=== PATIENT | male | born 1990 | race Caucasian/White ===

== ENCOUNTER 2016-08-31 15:24 | Emergency (ER) | payer BC, OTHER ==
[2016-08-31] MEDS ORDERED: Ketorolac 30 MG/ML SDV IVPUSH ONE (16:02)
[2016-08-31] MEDS ORDERED: Sodium Chloride 0.9% 1,000 ML IV ONE (16:02)
[2016-08-31 16:34] LABS: CHLORIDE,CL 105 mmol/L (98-110); SODIUM,NA 142 mmol/L (136-146)
--- NOTE | 2016-08-31 16:58 | EDM.PDOC ---
[id number] Complaint: BOWEL ISSUES Time Seen by Provider: 08/31/16 15:57 Source of Information: Reports: Patient History Limitations: Reports: No Limitations - History of Present Illness INITIAL COMMENTS - FREE TEXT/NARRATIVE: History of present illness: 26-year-old male comes in complaining of abdominal pain. Patient case has a history of obstructive bowel pattern and obstipation and he's concerned that he is having another bowel obstruction at this time and would like to be evaluated. Review of systems: As per history of present illness and below otherwise all systems reviewed and negative. Past medical history: As per history of present illness and as reviewed below otherwise noncontributory. Surgical history: As per history of present illness and as reviewed below otherwise noncontributory. Social history: No reported history of drug or alcohol abuse. Family history: As per history of present illness and as reviewed below otherwise noncontributory. Physical exam: HEENT: Atraumatic, normocephalic, pupils reactive, negative for conjunctival pallor or scleral icterus, mucous membranes moist, throat clear, neck supple, nontender, trachea midline. Lungs: Clear to auscultation, breath sounds equal bilaterally, chest nontender. Heart: S1S2, regular, negative for clicks, rubs, or JVD. Abdomen: Soft, diffuse tender in right upper quadrant as well as radiating to right lower quadrant. Hypoactive bowel sounds throughout, Negative for masses or hepatosplenomegaly. Negative for costovertebral tenderness. Pelvis: Stable nontender. Genitourinary: Deferred. Rectal: Deferred. Extremities: Atraumatic, negative for cords or calf pain. Neurovascular unremarkable. Neuro: Awake, alert, oriented. Cranial nerves II through XII unremarkable. Cerebellum unremarkable. Motor and sensory unremarkable throughout. Exam nonfocal. Diagnostics: [CBC, CMP, flatplate of the abdomen] Therapeutics: [IV fluids] Impression: [Constipation] Plan: [Laxatives increase hydration] Definitive disposition and diagnosis as appropriate pending reevaluation and review of above. Right Lower Pain Score (Numeric/FACES): 8 - Related Data Allergies Allergy/AdvReac Type Severity Reaction Status Date / Time No Known Allergies Allergy Verified 09/01/16 21:29 Home Meds: Home Meds Loratadine [Claritin] 10 mg DAILY 08/31/16 [History] Metoclopramide [Reglan] 10 mg PO Q8H #30 tablet 08/31/16 [Rx] Polyethylene Glycol 3350 [MiraLAX] 17 gm PO DAILY #238 cont 08/31/16 [Rx] Past Medical History HEENT History: Reports: None Cardiovascular History: Reports: None Respiratory History: Reports: None Gastrointestinal History: Reports: Bowel Obstruction, Other (See Below) Other Gastrointestinal History: bowel instruction x 4 in the past Genitourinary History: Reports: None Musculoskeletal History: Reports: None Neurological History: Reports: None Psychiatric History: Reports: None Endocrine/Metabolic History: Reports: None Dermatologic History: Reports: None - Infectious Disease History Infectious Disease History: Reports: None - Past Surgical History HEENT Surgical History: Reports: Other (See Below) Other HEENT Surgeries/Procedures: wisdom teeth GI Surgical History: Reports: Appendectomy, Other (See Below) Other GI Surgeries/Procedures: abscessed appendix Social & Family History - Recreational Drug Use Recreational Drug Use: No ED ROS GENERAL - Review of Systems Review Of Systems: See Below (See history of present illness) ED EXAM, GI/ABD - Physical Exam Exam: See Below (See history of present illness) Course - Vital Signs Last Recorded V/S: Last Vital Signs Temp 36.5 C 08/31/16 15:41 Pulse 88 08/31/16 18:03 Resp 16 08/31/16 18:03 BP 128/81 08/31/16 18:03 Pulse Ox 98 08/31/16 18:03 - Orders/Labs/Meds Labs: Laboratory Tests 08/31/16 08/31/16 Range/Units 15:40 15:40 WBC 5.86 (4.0-11.0) K/uL RBC 4.71 (4.50-5.90) M/uL Hgb 14.8 (13.0-17.0) g/dL Hct 42.5 (38.0-50.0) % MCV 90.2 (80.0-98.0) fL MCH 31.4 (27.0-32.0) pg MCHC 34.8 (31.0-37.0) g/dL RDW Std Deviation 39.3 (28.0-62.0) fl RDW Coeff of Imer 12 (11.0-15.0) % Plt Count 198 (150-400) K/uL MPV 11.90 (7.40-12.00) fL Neut % (Auto) 54.4 (48.0-80.0) % Lymph % (Auto) 34.3 (16.0-40.0) % Frederick % (Auto) 8.7 (0.0-15.0) % Eos % (Auto) 1.9 (0.0-7.0) % Baso % (Auto) 0.7 (0.0-1.5) % Neut # (Auto) 3.2 (1.4-5.7) K/uL Lymph # (Auto) 2.0 (0.6-2.4) K/uL Frederick # (Auto) 0.5 (0.0-0.8) K/uL Eos # (Auto) 0.1 (0.0-0.7) K/uL Baso # (Auto) 0.0 (0.0-0.1) K/uL Nucleated RBC % 0.0 /100WBC Nucleated RBCs # 0 K/uL Sodium 142 (136-146) mmol/L Potassium 3.9 (3.5-5.1) mmol/L Chloride 105 (98-110) mmol/L Carbon Dioxide 29 (21-31) mmol/L BUN 15 (6.0-23.0) mg/dL Creatinine 1.3 (0.6-1.5) mg/dL Est Cr Clr Drug Dosing 75.24 mL/min Estimated GFR (MDRD) > 60.0 ml/min Glucose 97 (60-110) mg/dL Calcium 9.8 (8.8-10.8) mg/dL Total Bilirubin 0.6 (0.1-1.5) mg/dL AST 18 (5-40) IU/L ALT 30 (8-54) IU/L Alkaline Phosphatase 79 (40-150) Total Protein 8.0 (6.0-8.0) g/dL Albumin 4.8 (3.5-5.0) g/dL Globulin 3.2 (2.0-3.5) g/dL Albumin/Globulin Ratio 1.5 (1.3-2.8) Meds: Medications Discontinued Medications Generic Name Dose Route Start Last Admin Trade Name Freq PRN Reason Stop Dose Admin Sodium Chloride 1,000 mls @ 999 mls/hr 08/31/16 16:02 08/31/16 16:30 Normal Saline IV 08/31/16 17:02 999 mls/hr STAT ONE Administration Ketorolac Tromethamine 30 mg 08/31/16 16:02 08/31/16 16:30 Toradol IVPUSH 08/31/16 16:03 30 mg ONETIME ONE Administration Departure - Departure Time of Disposition: 18:55 Disposition: Home, Self-Care 01 Condition: Good Clinical Impression: Abdominal pain - Discharge Information Prescriptions: Metoclopramide [Reglan] 10 mg PO Q8H #30 tablet Polyethylene Glycol 3350 [MiraLAX] 17 gm PO DAILY #238 cont Instructions: Abdominal Pain, Adult, [id number] Referrals: PCP,None [Primary Care Provider] - Forms: ED Department Discharge
[2016-08-31 18:05] VITALS: BP 128/81
--- NOTE | 2016-09-01 09:38 | CR ---
EXAM DATE: 08/31/16 PATIENT'S AGE: 26 Patient: MAGGY ISAAC Facility: [place], [place] Site . Site : 1990 Study: XRay Abdomen [id number]/10/2017 5:11:26 PM Ordering Physician: Doctor Nunn Final Report: HISTORY: History of bowel obstruction. FINDINGS: Two erect and two supine radiographs of the abdomen demonstrates lung bases are clear. There is no free air under the diaphragm. There is a small bowel distended at 3.6 cm without air-fluid levels. Stool and gas is seen throughout the colon. There surgical clips in the right lower quadrant, pelvis and overlying the left sacrum. IMPRESSION: 1. No free air. 2. Nonspecific bowel gas pattern. There is some small bowel gas in loops distended to 3.6 cm without air-fluid levels. 3. Copious stool seen throughout the colon. Dictated by Chelsea Stevens MD @ 08/31/2016 5:18:07 PM Dictated by: Chelsea Stevens MD @ 08/31/2016 17:18:14 (Electronic Signature) Report Signed by Proxy. MARSHA
== END 2016-08-31 18:05 | disposition home or self-care (01) ==
LOC: MW.ED 15:24
DX: K59.00 Constipation, unspecified (principal); Z90.49 Acquired absence of other specified parts of digestive tract; Z79.899 Other long term (current) drug therapy
CPT/HCPCS: 36415; 74020; 80053; 85025; 96361; 96374; 99284; J1885; J7040

== ENCOUNTER 2016-09-01 21:18 | Emergency (ER) | payer OTHER ==
--- NOTE | 2016-09-01 21:42 | EDM.PDOC ---
ED HPI GENERAL MEDICAL PROBLEM - General Chief Complaint: Gastrointestinal Problem Stated Complaint: BOWEL OBSTRUCTION Time Seen by Provider: 09/01/16 21:41 Source of Information: Reports: Patient - History of Present Illness INITIAL COMMENTS - FREE TEXT/NARRATIVE: HISTORY AND PHYSICAL: History of present illness: []Patient with history of anxiety and previous bowel obstruction presents with concern for bowel obstruction as he has been feeling anxious, he was just seen yesterday provided MiraLAX and Reglan, with 1 dose of MiraLAX in the Reglan he has since had 10 bowel movements the patient does feel kind of anxious as well as mild nausea No fever vomiting chills sweats no chest pain shortness breath headache dizziness or palpitation or urine symptoms Review of systems: As per history of present illness and below otherwise all systems reviewed and negative. Past medical history: As per history of present illness and as reviewed below otherwise noncontributory. Surgical history: As per history of present illness and as reviewed below otherwise noncontributory. Social history: No reported history of drug or alcohol abuse. Family history: As per history of present illness and as reviewed below otherwise noncontributory. Physical exam: HEENT: Atraumatic, normocephalic, pupils reactive, negative for conjunctival pallor or scleral icterus, mucous membranes moist, throat clear, neck supple, nontender, trachea midline. Lungs: Clear to auscultation, breath sounds equal bilaterally, chest nontender. Heart: S1S2, regular, negative for clicks, rubs, or JVD. Abdomen: Soft, nondistended, nontender. Negative for masses or hepatosplenomegaly. Negative for costovertebral tenderness. Pelvis: Stable nontender. Genitourinary: Deferred. Rectal: Deferred. Extremities: Atraumatic, negative for cords or calf pain. Neurovascular unremarkable. Neuro: Awake, alert, oriented. Cranial nerves II through XII unremarkable. Cerebellum unremarkable. Motor and sensory unremarkable throughout. Exam nonfocal. Diagnostics: []Flat and upright CBC and CMP on file yesterday completely within normal limits Therapeutics: []Stop Reglan Impression: Worried well Definitive disposition and diagnosis as appropriate pending reevaluation and review of above. no pain Pain Score (Numeric/FACES): 0 - Related Data Allergies Allergy/AdvReac Type Severity Reaction Status Date / Time No Known Allergies Allergy Verified 09/01/16 21:29 Home Meds: Home Meds Loratadine [Claritin] 10 mg DAILY 08/31/16 [History] Metoclopramide [Reglan] 10 mg PO Q8H #30 tablet 08/31/16 [Rx] Polyethylene Glycol 3350 [MiraLAX] 17 gm PO DAILY #238 cont 08/31/16 [Rx] Past Medical History HEENT History: Reports: None Cardiovascular History: Reports: None Respiratory History: Reports: None Gastrointestinal History: Reports: Bowel Obstruction, Other (See Below) Other Gastrointestinal History: bowel instruction x 4 in the past Genitourinary History: Reports: None Musculoskeletal History: Reports: None Neurological History: Reports: None Psychiatric History: Reports: None Endocrine/Metabolic History: Reports: None Hematologic History: Reports: None Immunologic History: Reports: None Dermatologic History: Reports: None - Infectious Disease History Infectious Disease History: Reports: None - Past Surgical History HEENT Surgical History: Reports: Other (See Below) Other HEENT Surgeries/Procedures: wisdom teeth GI Surgical History: Reports: Appendectomy, Other (See Below) Other GI Surgeries/Procedures: abscessed appendix Social & Family History - Family History Family Medical History: Noncontributory - Tobacco Use Smoking Status *Q: Never Smoker - Recreational Drug Use Recreational Drug Use: No ED ROS GENERAL - Review of Systems Review Of Systems: ROS reveals no pertinent complaints other than HPI. ED EXAM, GENERAL - Physical Exam Exam: See Below Course - Vital Signs Last Recorded V/S: Last Vital Signs Temp 36.1 C 09/01/16 21:29 Pulse 78 09/01/16 21:29 Resp 16 09/01/16 21:29 BP 149/88 H 09/01/16 21:29 Pulse Ox 98 09/01/16 21:29 - Orders/Labs/Meds Orders: Active Orders 24 hr Category Date Time Status Abdomen 2V AP Flat Upright [CR] Stat Exams 09/01/16 21:32 Taken Departure - Departure Time of Disposition: 22:09 Disposition: Home, Self-Care 01 Condition: Good Clinical Impression: Worried well - Discharge Information Forms: ED Department Discharge Additional Instructions: Stop Reglan No further treatment required Continue with bowel care [id number] as needed Follow-up with primary care in 2 weeks sooner as needed [facility] [address] [place] [id number] The following information is given to patients seen in the emergency department who are being discharged to home. This information is to outline your options for follow-up care. We provide all patients seen in our emergency department with a follow-up referral. The need for follow-up, as well as the timing and circumstances, are variable depending upon the specifics of your emergency department visit. If you don't have a primary care physician on staff, we will provide you with a referral. We always advise you to contact your personal physician following an emergency department visit to inform them of the circumstance of the visit and for follow-up with them and/or the need for any referrals to a consulting specialist. The emergency department will also refer you to a specialist when appropriate. This referral assures that you have the opportunity for follow-up care with a specialist. All of these measure are taken in an effort to provide you with optimal care, which includes your follow-up. Under all circumstances we always encourage you to contact your private physician who remains a resource for coordinating your care. When calling for follow-up care, please make the office aware that this follow-up is from your recent emergency room visit. If for any reason you are refused follow-up, please contact the [facility] emergency department at and asked to speak to the emergency department charge nurse. - My Orders Last 24 Hours: My Active Orders 09/01/16 21:32 Abdomen 2V AP Flat Upright [CR] Stat - Assessment/Plan Last 24 Hours: My Active Orders 09/01/16 21:32 Abdomen 2V AP Flat Upright [CR] Stat
[2016-09-01 22:28] VITALS: BP 131/74
--- NOTE | 2016-09-02 10:51 | CR ---
EXAM DATE: 09/01/16 PATIENT'S AGE: 26 Patient: MAGGY ISAAC Facility: [place], [place] Site . Site : 1990 Study: XRay Abdomen [id number]/11/2017 9:57:57 PM Ordering Physician: Calixto Matamoros Final Report: INDICATION: bowel obstruction TECHNIQUE: Abdominal radiograph 3 views COMPARISON: None FINDINGS: Bowel: The bowel gas pattern is normal without evidence of bowel obstruction. Soft tissues: No evidence of pneumoperitoneum present. No sign of soft tissue mass seen. No suspicious calcifications noted. Several surgical clips are noted in the right lower quadrant and pelvis. Bones: Unremarkable for age. IMPRESSIONS: 1. Unremarkable radiographs of the abdomen. Dictated by: Brandon Waters MD @ 09/01/2016 22:12:36 (Electronic Signature) Report Signed by Proxy. MARSHA
== END 2016-09-01 22:28 | disposition home or self-care (01) ==
LOC: MW.ED 21:18
DX: Z71.1 Person with feared health complaint in whom no diagnosis is made (principal); Z79.899 Other long term (current) drug therapy; Z90.49 Acquired absence of other specified parts of digestive tract
CPT/HCPCS: 74020; 74020-26; 99282; 99284